=== PATIENT | female | born 1945 | race Caucasian/White ===

== ENCOUNTER 2019-12-02 08:35 | Outpatient (CLI) | payer MEDICARE, OTHER, SELFPAY ==
--- NOTE | ~2019-12-02 | US_ITS ---
EXAMINATION: US FNA w image guidance DATE: 12/02/2019 09:50 INDICATION: Nontoxic single thyroid nodule TECHNIQUE: A time-out was performed to verify the patient's name, date of , and procedure to be performed . The procedure and its benefits and risks were discussed with the patient. Risks specifically discus sed included bleeding and infection. The patient understood the risks and agreed to proceed. The neck was prepped and draped in the usual sterile manner. 6 mL 1% lidocaine was used for local anesthesia . 6 passes were made with a 25G needle into the lesion. Appropriate needle location was documented with continuous sonographic guidance. The specimens were passed to the generation technologist in the room. A sterile bandage was applied. There were no immediate complications. FINDINGS: Grayscale ultrasound images demonstrate biopsy needles advanced into a solid 4.6 x 3.4 x 3.2 cm left thyroid mass. IMPRESSION: 1. Successful ultrasound-guided fine needle aspiration of a 4.6 cm solid left thyroid mass. Reviewed, dictated and finalized at location A.
== END 2019-12-02 08:36 | disposition home or self-care (01) ==
PROVIDERS: Visit Provider Internal Medicine Endocrinology, Diabetes & Metabolism
DX: E04.1 Nontoxic single thyroid nodule (principal)
CPT/HCPCS: 10005; 88108; 88173; 88305

== ENCOUNTER 2020-05-05 12:28 | Outpatient (CLI) | payer MEDICARE, OTHER, SELFPAY ==
--- NOTE | ~2020-05-05 | US_ITS ---
US thyroid INDICATION: Thyroid nodule TECHNIQUE: Real-time sonographic images of the thyroid gland were obtained. COMPARISON: No prior studies for comparison. FINDINGS: The right thyroid lobe measures 6.5 x 2.5 x 2.1 cm. The left thyroid lobe measures 8.2 x 6 .2 x 3.5 cm. There is heterogeneous thyroid echotexture in both lobes. There are multiple bilateral t hyroid masses, largest in the right lobe measuring 2.9 x 2.5 x 2.8 cm which is partially cystic, slig htly hyperechoic, wider than tall, irregular margins without evidence for calcification, TR 3. There is internal vascularity. Largest mass in the left lobe measures 5.3 x 4.8 x 3.2 cm, TR 4. This mass i s almost completely solid, hyperechoic, lobulated margins, wider than tall and no apparent calcificat ions. IMPRESSION: 1. Enlarged thyroid gland containing multiple masses. Ultrasound-guided fine-needle aspiration biops y of largest dominant bilateral thyroid masses recommended. Reviewed, dictated and finalized at location A. IMPRESSION: 1. Enlarged thyroid gland containing multiple masses. Ultrasound-guided fine-n eedle aspiration biopsy of largest dominant bilateral thyroid masses recommende d.
== END 2020-05-05 12:29 | disposition home or self-care (01) ==
LOC: ANHIMG 12:30
PROVIDERS: Visit Provider Internal Medicine Endocrinology, Diabetes & Metabolism
DX: E04.1 Nontoxic single thyroid nodule (principal)
CPT/HCPCS: 76536

== ENCOUNTER 2020-06-26 11:30 | Emergency (ER) | payer MEDICARE, OTHER, SELFPAY ==
[2020-06-26 11:38] VITALS: BP 165/86; PULSE 108; RESP 20; TEMP 36.7; O2SAT 99
[2020-06-26 12:03] LABS: Add Urine Microscopic? YES; Appearance Urine Clear (Clear); Bacteria Urine 4+ /hpf; Bilirubin Urine Negative (Negative); Color Urine Yellow (Yellow); Glucose Urine UA Negative (Negative); Ketones Urine Negative (Negative); Leukocyte Esterase Ur Negative LEU/UL (Negative); Mucus Urine Rare /lpf; Nitrate Urine Negative (Negative); Protein Urine Negative (Negative); Specific Grav Ur 1.021 (1.001-1.035); Squamous Epithelial Cell Urine Few /hpf (Few); Urobilinogen Urine Negative mg/dL (<2.0)
[2020-06-26 12:04] LABS: Blood Urine Negative (Negative)
--- NOTE | 2020-06-26 12:05 | ED.GENADULT ---
HPI - General Adult General Chief complaint: Urogenital-Female Stated complaint: urinary issues Time Seen by Provider: 06/26/20 11:46 Source: patient History of Present Illness HPI narrative: Patient is a 74 y/o female complaining of dysuria for 5 days. She states that she saw her urologist Dr. Wilson, who prescribed her Augmentin 3 days ago. She developed vomiting and diarrhea shortly after taking Augmentin. She then stopped Augmentin and her vomiting and diarrhea has stopped. She contacted her urologist's office and was told to come to ED for possible admission for IV antibiotics. She has no fever, chill, vomiting or diarrhea at this time, but still has dysuria. She state she has taken Amoxicillin in the past and she is able tolerate Amoxicillin. Related Data Home Medications Medication Instructions Recorded Confirmed amitriptyline 25 mg tablet 25 mg PO ONCE 09/16/19 05/29/20 docusate sodium 100 mg capsule 100 mg PO DAILY 09/16/19 05/29/20 estradiol 1 gm VAGINAL WEEKLY 09/16/19 05/29/20 diclofenac sodium 50 mg 50 mg PO DAILY 05/29/20 tablet,delayed release Allergies Allergy/AdvReac Type Severity Reaction Status Date / Time amoxicillin Allergy Unknown NAUSEA AND Verified 06/26/20 11:52 VOMITING ciprofloxacin Allergy Unknown Weakness Verified 06/26/20 11:52 clavulanic acid Allergy Unknown NAUSEA AND Verified 06/26/20 11:52 VOMITING Iodinated Contrast Media Allergy Unknown CAN'T Verified 06/26/20 11:52 BREATH. THROAT SWELLING ioversol Allergy Unknown Wheezing Verified 06/26/20 11:52 Penicillins Allergy Unknown THROAT Verified 06/26/20 11:52 SWELLING Sulfa (Sulfonamide Allergy Unknown Wheezing Verified 06/26/20 11:52 Antibiotics) hydrocodone Allergy Swelling Verified 06/26/20 11:52 of Lip/Tongue/Throat Review of Systems Constitutional: Constitutional: Denies chills, Denies fever(s), Denies headache(s) and Denies weakness Eyes: Eyes: Denies blurry vision ENT: Denies headache(s) and Denies neck pain Cardiovascular: Cardiovascular: Denies chest pain and Denies dyspnea Respiratory: Respiratory: Denies cough and Denies dyspnea Gastrointestinal: Gastrointestinal: Denies abdominal pain, Reports diarrhea, Reports nausea and Reports vomiting Genitourinary: Genitourinary: Denies hematuria and Reports dysuria Musculoskeletal: Musculoskeletal: Denies back pain and Denies neck pain Neurologic: Denies headache(s) and Denies weakness PMFSH Family History Family History Mother Family history of kidney disease Family history of diabetes mellitus in first degree relative Social History Social History Smoking status: Never smoker Alcohol intake: never Exam Const: General: no acute distress and well developed Orientation/consciousness: oriented to person, oriented to place, oriented to time and patient oriented x3 HENMT: Head: normocephalic Ears: external ears normal General nose exam: Normal external nose present Eyes: General: appearance normal, both eyes and all related structures Conjunctivae: conjunctivae normal Neck: Neck: normal visual inspection and full ROM Chest: Chest palpation & inspection: normal inspection of the chest and no tenderness Resp: Effort & Inspection: normal respiratory effort Auscultation: clear to auscultation bilaterally Cardio: Rate: regular rate Rhythm: regular rhythm GI: GI Palp: No abdominal tenderness and Yes Soft to palpation Skin: General skin exam: normal color and turgor normal Neuro: General: oriented to person, oriented to place, oriented to time and patient oriented x3 Cognition (Neuro): normal cognition Extrem: General: normal to inspection, full ROM and no pedal edema Psych: Appearance: grossly normal Mental Status: mental status grossly normal Affect: normal affect Course Reevaluation(s) Reevaluati
[2020-06-26 12:49] LABS: Basophils Percent Auto 0.2 % (0.2-1.2); Eosinophils Absolute Auto 0.1 K/mm3 (0-0.3); Eosinophils Percent Auto 0.6 % (0-4.4); Hematocrit 41.6 % (37.0-47.0); Hemoglobin 14.1 g/dL (12.0-15.0); Immature Granulocyte Absolute 0.08 K/mm3 (0.00-0.031); Immature Granulocyte Percent A 0.6 % (0-0.5); Lymphocytes Absolute Auto 3.36 K/mm3 (0.9-3.2); Lymphocytes Percent Auto 26.6 % (18.3-44.2); Mean Corpuscular HGB Conc 33.9 g/dl (32-36); Mean Corpuscular Hemoglobin 30.6 pg (26-34); Mean Corpuscular Volume 90.2 fl (80-100); Mean Platelet Volume 9.7 fl (7.4-10.4); Monocytes Absolute Auto 1.2 K/mm3 (0.1-0.6); Monocytes Percent Auto 9.4 % (2.6-8.5); Neutrophils Absolute Auto 7.9 K/mm3 (1.3-6.7); Neutrophils Percent Auto 62.6 % (45.5-73.1); Platelet Count Result 225 k/mm3 (150-375); Red Blood Count 4.61 M/mm3 (4.2-5.4); Red Cell Distribution Width 13.2 % (11.5-14.5); White Blood Count 12.7 K/mm3 (4.5-10.0)
[2020-06-26 12:58] LABS: Anion Gap 7 mmol/L (8-16); Blood Urea Nitrogen 19 mg/dL (7-17); Carbon Dioxide 27 mmol/L (22-30); Chloride 105 mmol/L (98-107); Estimated CRCL calculation 54 ml/min; Estimated Glomerular Filt Rate > 60; Glucose 113 mg/dL (65-105); Sodium 139 mmol/L (137-145)
[2020-06-26 14:28] VITALS: BP 145/78; PULSE 89; RESP 16; O2SAT 100
== END 2020-06-26 14:30 | disposition home or self-care (01) ==
PROVIDERS: Emergency Provider Emergency Medicine; PCP Family Medicine
DX: N39.0 Urinary tract infection, site not specified (principal)
CPT/HCPCS: 36415; 80048; 81001; 85025; 87086; 87088; 99283

== ENCOUNTER 2020-07-14 10:14 | Outpatient (CLI) | payer MEDICARE, OTHER, SELFPAY ==
--- NOTE | ~2020-07-14 | US_ITS ---
EXAMINATION: US FNA w image guidance DATE: 07/14/2020 11:30 INDICATION: Nontoxic 2.9 cm right thyroid nodule TECHNIQUE: A time-out was performed to verify the patient's name, date of , and procedure to be performed . The procedure and its benefits and risks were discussed with the patient. Risks specifically discus sed included bleeding and infection. The patient understood the risks and agreed to proceed. The neck was prepped and draped in the usual sterile manner. 3 mL 1% lidocaine was used for local anesthesia . 6 passes were made with a 25G needle into the lesion. Appropriate needle location was documented with continuous sonographic guidance. The specimens were passed to the supervisor microbiology technologists in the room. A sterile bandage was applied. There were no immediate complications. FINDINGS: Grayscale ultrasound images demonstrate biopsy needles advanced into the 2.6 cm mixed solid and cysti c right thyroid nodule concern. IMPRESSION: 1. Successful ultrasound-guided fine needle aspiration of the 2.6 cm right thyroid nodule of concern . Reviewed, dictated and finalized at location A. [employer] PROFESSOR [employer] IMPRESSION: 1. Successful ultrasound-guided fine needle aspiration of the 2.6 cm right thy roid nodule of concern.
== END 2020-07-14 10:15 | disposition home or self-care (01) ==
PROVIDERS: Visit Provider Internal Medicine Endocrinology, Diabetes & Metabolism
DX: E04.1 Nontoxic single thyroid nodule (principal)
CPT/HCPCS: 10005; 88173; 88305

== ENCOUNTER 2020-11-28 11:07 | Outpatient (CLI) | payer MEDICARE, OTHER, SELFPAY ==
[2020-11-28 12:31] LABS: Anion Gap 8 mmol/L (8-16); Blood Urea Nitrogen 10 mg/dL (7-17); Calcium 9.6 mg/dL (8.4-10.2); Carbon Dioxide 26 mmol/L (22-30); Chloride 105 mmol/L (98-107); Estimated Glomerular Filt Rate > 60; Glucose 103 mg/dL (65-105); Potassium 4.6 mmol/L (3.4-5.0); Sodium 139 mmol/L (137-145)
[2020-11-28 12:47] LABS: Free T4 Free Thyroxine 1.84 ng/mL (0.78-2.19)
[2020-11-28 13:04] LABS: Thyroid Stimulating Hormone 0.032 uIU/mL (0.465-4.680)
== END 2020-11-28 11:08 | disposition home or self-care (01) ==
PROVIDERS: Visit Provider Internal Medicine Endocrinology, Diabetes & Metabolism
DX: Z78.0 Asymptomatic menopausal state (principal); E05.90 Thyrotoxicosis, unspecified without thyrotoxic crisis or storm; E89.0 Postprocedural hypothyroidism
CPT/HCPCS: 36415; 80048; 84439; 84443

== ENCOUNTER 2021-06-01 14:33 | Outpatient (CLI) | payer MEDICARE, OTHER, SELFPAY ==
[2021-06-01 15:44] LABS: Free T4 Free Thyroxine 1.46 ng/mL (0.78-2.19)
== END 2021-06-01 14:34 | disposition home or self-care (01) ==
PROVIDERS: Visit Provider Internal Medicine Endocrinology, Diabetes & Metabolism
DX: E89.0 Postprocedural hypothyroidism (principal)
CPT/HCPCS: 36415; 84439; 84443